=== PATIENT | female | born 1945 | race Caucasian/White ===

== ENCOUNTER 2019-11-02 05:53 | Day surgery (SDC) | payer MEDICARE, BC ==
[2019-10-27 16:28] LABS: BASOPHILS # (AUTO) 0.1 X10'3 (0-0.2); BASOPHILS % (AUTO) 1.3 % (0-1); EOSINOPHILS # (AUTO) 0.2 X10'3 (0-0.9); EOSINOPHILS % (AUTO) 3.8 % (0-6); LYMPHOCYTES % (AUTO) 35.5 % (21-51); MEAN CORPUSCULAR HEMOGLOBIN 36.3 PG (27.0-31.0); MEAN CORPUSCULAR HGB CONC 35.2 g/dL (33.0-36.5); MEAN CORPUSCULAR VOLUME 103.1 FL (78-98); MEAN PLATELET VOLUME 7.9 FL (7.4-10.4); MONOCYTES # (AUTO) 0.4 X10'3 (0-0.9); NEUTROPHILS # (AUTO) 2.9 X10'3 (1.8-7.7); NEUTROPHILS % (AUTO) 52.4 % (42-75); PRE OP HEMATOCRIT 36.1 % (35.0-45.0); PRE OP HEMOGLOBIN 12.7 g/dL (12.0-16.0); PRE OP PLATELET COUNT 280 X10'3 (140-440); RED CELL DISTRIBUTION WIDTH 14.5 % (11.5-14.5)
[2019-10-27 16:30] LABS: ALBUMIN 3.9 G/DL (3.4-5.0); ALBUMIN/GLOBULIN RATIO 1.2 (1.1-1.5); ALKALINE PHOSPHATASE 92 IU/L (46-116); BLOOD UREA NITROGEN 15 MG/DL (7-18); CALCIUM 9.1 MG/DL (8.5-10.1); CHLORIDE 103 MMOL/L (99-107); CREATININE 0.94 MG/DL (0.40-0.90); PRE OP ALT 19 U/L (30-65); PRE OP ANION GAP 4 (8-16); PRE OP AST 25 U/L (10-37); PRE OP BILIRUB, TOTAL 0.3 MG/DL (0.0-1.0); PRE OP GLUCOSE 110 MG/DL (70-104); PRE OP SODIUM 138 MMOL/L (135-145); TOTAL CARBON DIOXIDE 30.6 MMOL/L (24-32); TOTAL PROTEIN 7.2 G/DL (6.4-8.2); eGFR 59 ML/MIN
[~2019-11-02] VITALS: Ht 154.9 cm; Wt 58.0 kg
[~2019-11-02 05:53] MED LIST: BETA1TAB19 PO; BIMA2.5D EACHEYE; BRIM5DRO3 EACHEYE; CHOL50004 PO; FEXO180T94 PO; LEVO50TA8 PO; MV-M1CAP15 PO; OMEP-50 PO; SERT50TA PO; SIMV10TA98 PO; TURM500C4 PO; VALA500T41 PO; VITA0.4T2 PO; cefazolin/dext.iso 2gm/100ml 100 ML IV ONE; famotidine 20mg tablet PO ONE; ringers solution, lacted 1,000 ML IV SCH
[2019-11-02 06:00] VITALS: BP 130/77
[2019-11-02] MEDS ORDERED: LIDOcaine 1% (10mg/ml) 2ml vial ONE (06:25)
[2019-11-02] MEDS ORDERED: BUPIVAcaine/PF 2.5mg/ml (0.25%) 10ml vial ONE (06:40)
[2019-11-02] MEDS ORDERED: LIDOcaine 0.5% (5mg/ml) 50ml vial ONE (07:35)
[2019-11-02] MEDS ORDERED: fentaNYL/PF 50MCG/1 ML 2ML syringe ONE (08:14)
[2019-11-02] MEDS ORDERED: midazolam 2 mg/2 ml injection ONE (08:14)
[2019-11-02 08:58] VITALS: BP 119/59
--- NOTE | 2019-11-02 08:58 | NUR ---
Received from OR via , accompanied by Anesthesiologist DR GRANADOS and report given by Anesthesiolgist. AWAKE AND KELSIE PAIN. VITALS STABLE. DRESSING DI. FINGERS COOL AND PINK.
[2019-11-02 09:08] VITALS: BP 118/76
[2019-11-02 09:18] VITALS: BP 120/62
[2019-11-02 09:28] VITALS: BP 122/66
--- NOTE | 2019-11-02 09:38 | NUR ---
AWAKE AND ORIENTED. VITALS STABLE. DRESSING DI. KELSIE PAIN. HOME WITH A FRIEND AT THIS TIME.
== END 2019-11-02 09:38 | disposition home or self-care (01) ==
LOC: PAS 05:53
PROVIDERS: ATTEND Orthopaedic Surgery Hand Surgery
DX: G56.01 Carpal tunnel syndrome, right upper limb (principal); M19.049 Primary osteoarthritis, unspecified hand; Z79.899 Other long term (current) drug therapy; M17.0 Bilateral primary osteoarthritis of knee; Z90.49 Acquired absence of other specified parts of digestive tract; Z98.51 Tubal ligation status; Z98.890 Other specified postprocedural states; Z82.49 Family history of ischemic heart disease and other diseases of the circulatory system; Z72.89 Other problems related to lifestyle
CPT/HCPCS: 36415; 64721; 80053; 82948; 85025; 93005; J2001; J2250; J3010; J3490; J7120; A4215

== ENCOUNTER 2024-02-01 09:22 | Outpatient (CLI) | payer MEDICARE, OTHER ==
[~2024-02-01 09:22] MED LIST changes: +ASPI-1 PO; -CHOL50004 PO; -FEXO180T94 PO; -MV-M1CAP15 PO; -OMEP-50 PO; +OMEP20CA16 PO; +ONQPUMP ADDCANAL; -TURM500C4 PO; -VITA0.4T2 PO; -cefazolin/dext.iso 2gm/100ml 100 ML IV ONE; -famotidine 20mg tablet PO ONE; -ringers solution, lacted 1,000 ML IV SCH
== END 2024-02-01 23:59 | disposition home or self-care (01) ==
LOC: MRI 09:22
PROVIDERS: ATTEND Nurse Practitioner Adult Health
DX: M47.27 Other spondylosis with radiculopathy, lumbosacral region (principal); M54.2 Cervicalgia; M47.812 Spondylosis without myelopathy or radiculopathy, cervical region; M51.17 Intervertebral disc disorders with radiculopathy, lumbosacral region; M48.07 Spinal stenosis, lumbosacral region; M54.50 Low back pain, unspecified; M46.1 Sacroiliitis, not elsewhere classified
CPT/HCPCS: 72148

== ENCOUNTER 2024-04-21 07:55 | Emergency (ER) | payer MEDICARE, OTHER ==
[~2024-04-21] VITALS: Ht 154.9 cm; Wt 50.0 kg
[2024-04-21 08:03] VITALS: TEMP 97.8
[2024-04-21] MEDS: ketorolac trometh 30MG/ML vial 30 MG/ML VIAL IM ONE (09:51)
[2024-04-21] MEDS ORDERED: TRAM50TA2 PO (10:24)
[2024-04-21 10:32] VITALS: BP 150/78; PULSE 71; RESP 16; O2SAT 99
== END 2024-04-21 10:23 | disposition home or self-care (01) ==
LOC: ER 07:56
DX: M54.50 Low back pain, unspecified (principal); M54.32 Sciatica, left side; Z88.2 Allergy status to sulfonamides; Z79.82 Long term (current) use of aspirin; Z79.899 Other long term (current) drug therapy; Z98.890 Other specified postprocedural states; Z72.89 Other problems related to lifestyle
CPT/HCPCS: 96372; 99284; J1885

== ENCOUNTER 2024-09-21 07:48 | Outpatient (CLI) | payer SELFPAY | END 2024-09-21 23:59 | disposition home or self-care (01) | LOC: RAD 07:48 | PROVIDERS: ATTEND Radiology Diagnostic Radiology | DX: Z13.9 Encounter for screening, unspecified (principal) ==